=== PATIENT | female | born 1995 | race Caucasian/White ===

== ENCOUNTER 2016-08-25 00:11 | Emergency (ER) | payer BC ==
[~2016-08-25] VITALS: Ht 154.9 cm; Wt 48.3 kg
[~2016-08-25 00:11] MED LIST: TYLENOL WITH C1 EACH PO
[2016-08-25 03:19] VITALS: BP 134/94
== END 2016-08-25 03:20 | disposition home or self-care (01) ==
LOC: EME 00:11 → EXP 00:11
DX: S06.0X0A Concussion without loss of consciousness, initial encounter (principal); S01.01XA Laceration without foreign body of scalp, initial encounter; Y04.8XXA Assault by other bodily force, initial encounter; Y92.488 Other paved roadways as the place of occurrence of the external cause; Y07.50 Unspecified non-family member, perpetrator of maltreatment and neglect; F17.200 Nicotine dependence, unspecified, uncomplicated
CPT/HCPCS: 70450; 99281; 99283